=== PATIENT | female | born 1930 | race Caucasian/White ===

== ENCOUNTER 2016-07-20 15:21 | Emergency (ER) | payer OTHER ==
--- NOTE | 2016-07-20 16:34 | EKG Report ---
Test Performed on : 07/20/2016 3:48:31 PM Test Reason : WEAKNESS Blood Pressure : / mmHG Vent. Rate : 081 BPM Atrial Rate : 057 BPM P-R Int : 000 ms QRS Dur : 074 ms QT Int : 380 ms P-R-T Axes : 000 071 013 degrees QTc Int : 441 ms Atrial fibrillation. Low voltage QRS Abnormal ECG No previous ECGs available Unconfirmed Result
--- NOTE | 2016-07-20 17:40 | PROVIDER DOCUMENTATION ---
HPI-General Adult - General Chief Complaint: Weakness Stated Complaint: WEAKNESS Time Seen by Provider: 07/20/16 16:47 Source: patient Allergies/Adverse Reactions: Patient Allergies Allergy/AdvReac Type Severity Reaction Status Date / Time codeine Allergy ITCHING Verified 04/04/13 12:44 Home Medications: Home Medication List Medication Instructions Recorded Confirmed Last Taken Type Propranolol [Inderal] 20 mg PO BID 04/04/13 12/11/14 07/20/16 07:00 History Apixaban [Eliquis] 2.5 mg PO BID 12/04/14 12/11/14 07/20/16 07:00 History Biotin 2,500 mcg PO DAILY 12/04/14 12/11/14 07/20/16 07:00 History Multivit-Minerals/Folic/Ginkgo 1 each PO DAILY 12/04/14 12/04/14 07/20/16 07:00 History [One Daily For Women 50+ Adv Tb] [place]-3S/Dha/Epa/Fish Oil/D3 [Fish 1 each PO DAILY 12/04/14 12/04/14 07/20/16 07 :00 History Wvl-Letzl-7-Vit D Softgel] Docusate Sodium [Colace] 100 mg PO BID #0 capsule 12/14/14 07/20/16 07:00 Rx Multivit,Fe,Ca,FA & Min [Thera M 1 each PO DAILY #0 tablet 12/14/14 07/20/16 07 :00 Rx Plus] Nitrofurantoin Monohyd/M-Cryst 100 mg PO BID #14 capsule 07/20/16 Unknown Rx [Macrobid 100 mg Capsule] - History of Present Illness -Gen Adult Nature of Presenting Problems: 86 y/o WF BIB daughter, c/o increased weakness over the past week. She has hx of AFib on Eliquis, and they called Dr. Tirado (business systems developer) who told them to come for evaluation. She denies chest pain, palpitations or sob. She reports a generalized fatigue. Saw PCP who d/c home for Dementia. Denies nausea , vomiting, diarrhea or dysuria. Location of Pain/Injury: reports: none Quality of Pain: reports: none Onset/Duration: reports: 1 week ago Timing: reports: constant Context/Activities at Onset: denies: light activity, moderate activity, vigorous activity, recent emotional stress, recent physical stress, recent trauma history, possible bad food, cold exposure, eating, out of country travel , rest, sleep Associated Symptoms: reports: loss of appetite, malaise, weakness. denies: anxiety, arm pain, back/neck pain, chest pain, constipation, cough, diaphoresis , diarrhea, dizziness, EENT symptoms, fatigue, fever/chills, genitourinary problems, headaches, heartburn, joint pain, muscle aches, sinus congestion/ drainage, nausea, rash, seizure, shortness of breath, sensory/motor loss, pain with inspiration, swelling/mass in abdomen, syncope, vomiting, trouble walking Similar Symptoms Previously?: Yes Recently seen or treated by another doctor?: Yes Review of Systems - Adult - REVIEW OF SYSTEMS - ADULT Constitutional: reports: see HPI, fatique. denies: chills, fever, weight loss Eyes: reports: no symptoms reported. denies: decreased vision, blurred vision, double vision, eye pain Ears, Nose, Mouth & Throat: reports: no symptoms reported. denies: ear pain, nose pain, throat pain Cardiovascular: reports: no symptoms reported. denies: chest pain, palpitations Respiratory: reports: no symptoms reported. denies: cough, shortness of breath , wheezing Gastrointestinal: reports: see HPI, nausea, poor appetite. denies: abdominal pain, diarrhea, vomiting Genitourinary: reports: no symptoms reported. denies: dysuria, discharge, frequency Musculoskeletal: reports: no symptoms reported Integumentary: reports: no symptoms reported. denies: rash Neurological: reports: no symptoms reported. denies: ataxia, dizziness/vertigo , headache/migraines Psychiatric: reports: no symptoms reported Endocrine: reports: no symptoms reported Hematologic/Lymphatic: reports: no symptoms reported Allergic/Immunologic: reports: no symptoms reported All Other Systems: Reviewed and Negative Past History - Adult - PAST MEDICAL HISTORY-ADULT Review of Records: reports: Old Records Reviewed, Nursing Assessment Review, Medications Reviewed, Social history reviewed & non-contributory. Major Childhood Illnesses: reports: denies history Cardiovascular: reports: A-Fib, HTN Respiratory: reports: denies history Gastrointestinal: reports: denies history Obstetrical/Gynecological: reports: uterine/ovarian cancer (breast) Genitourinary: reports: denies history Musculoskeletal: reports: denies history Neurological: reports: denies history Endocrine/Immune: reports: denies history Other Conditions: reports: denies history - FAMILY HISTORY Family History: reviewed, not pertinent - SOCIAL HISTORY Smoking: denies Substance Use: none/never Alcohol Use Frequency: never Physical Exam-General - PHYSICAL EXAM-ADULT Initial Vital Signs Reviewed: Yes - CONSTITUTIONAL General Appearance: appears well, alert, no apparent distress - EYES Eyes: PERRL/EOMI, pink conjunctivae - HEAD, EARS, NOSE, MOUTH & THROAT HENMT: normocephalic/atraumatic, moist mucous membranes, normal ENT inspection - NECK Neck: non-tender, full range of motion, supple, normal inspection - RESPIRATORY Respiratory: chest non-tender, lungs clear, normal breath sounds, no pleuratic chest pain, no respiratory distress, no accessory muscle use. negative: respiratory distress, decreased breath sounds, accessory muscle use, crackles, rales, rhonchi, wheezing - CARDIOVASCULAR Cardiovascular: normal peripheral pulses, regular rate, rhythm - GASTROINTESTINAL (ABDOMEN) Abdominal Exam: normal bowel sounds, non tender, soft, no organomegaly, no pulsatile mass. negative: abdominal bruit, abnormal bowel sounds, distended, guarding, rigid, rebound, tenderness - MUSCULOSKELETAL Extremity: normal range of motion, non-tender, normal gait, normal inspection Peripheral Pulses: radial (R): 2+, radial (L): 2+, dorsalis-pedis (R): 2+, dorsalis-pedis (L): 2+ - SKIN Integumentary: normal color, normal turgor, warm/dry - NEUROLOGIC Neurologic: grossly normal, no motor/sensory deficits - PSYCHIATRIC Psych/Mental Status: normal mood/affect, normal thought content, normal thought process, oriented x 3 Progress - PLAN OF CARE/RESULTS Progress/Plan/Lab Results: Vital Signs Temp Pulse Resp BP Pulse Ox 07/20/16 15:52 96.4 F L 76 18 141/70 98 codeine Allergy (Verified 04/04/13 12:44) ITCHING Propranolol [Inderal] 20 mg PO BID 04/04/13 Apixaban [Eliquis] 2.5 mg PO BID 12/04/14 Biotin 2,500 mcg PO DAILY 12/04/14 Multivit-Minerals/Folic/Ginkgo [One Daily For Women 50+ Adv Tb] 1 each PO DAILY 12/04/14 [place]-3S/Dha/Epa/Fish Oil/D3 [Fish Egf-Sincp-9-Vit D Softgel] 1 each PO DAILY Docusate Sodium [Colace] 100 mg PO BID #0 capsule 12/14/14 Multivit,Fe,Ca,FA & Min [Thera M Plus] 1 each PO DAILY #0 tablet 12/14/14 Laboratory 07/20/16 07/20/16 07/20/16 20:40 20:40 17:50 WBC RBC Hgb Hct MCV MCH MCHC RDW Std Deviation Plt Count MPV Immature Gran % (Auto) Neut % (Auto) Lymph % (Auto) [place] % (Auto) Eos % (Auto) Baso % (Auto) Immature Gran # (Auto) Neut # (Auto) Lymph # (Auto) [place] # (Auto) Eos # (Auto) Baso # (Auto) PT INR PTT (Actin FS) D-Dimer Sodium Potassium Chloride Carbon Dioxide Anion Gap BUN Creatinine Estimated GFR/1.73 m2 BUN/Creatinine Ratio Glucose Calculated Osmolality Calcium Magnesium Total Bilirubin AST ALT Alkaline Phosphatase Creatine Kinase 22 L Troponin T < 0.010 < 0.010 Gky-B-Oxwoonflckx Pept Total Protein Albumin Globulin Albumin/Globulin Ratio Urine Source Urine Color Urine Turbidity Urine pH Ur Specific [place] Urine Protein Ur Glucose (Stick) Ur Ketones (Stick) Urine Blood Urine Nitrite Urine Bilirubin Urobilinogen Dipstick Urine Leukocytes Urine WBC (Auto) Urine RBC (Auto) U Epithel Cells (Auto) Urine Bacteria (Auto) 07/20/16 07/20/16 07/20/16 17:50 17:50 17:50 WBC RBC Hgb Hct MCV MCH MCHC RDW Std Deviation Plt Count MPV Immature Gran % (Auto) Neut % (Auto) Lymph % (Auto) [place] % (Auto) Eos % (Auto) Baso % (Auto) Immature Gran # (Auto) Neut # (Auto) Lymph # (Auto) [place] # (Auto) Eos # (Auto) Baso # (Auto) PT 10.8 INR 1.02 PTT (Actin FS) 25.6 D-Dimer 0.12 Sodium Potassium Chloride Carbon Dioxide Anion Gap BUN Creatinine Estimated GFR/1.73 m2 BUN/Creatinine Ratio Glucose Calculated Osmolality Calcium Magnesium Total Bilirubin AST ALT Alkaline Phosphatase Creatine Kinase Troponin T Juj-O-Bxqlanbrcjg Pept 1210 H Total Protein Albumin Globulin Albumin/Globulin Ratio Urine Source Urine Color Urine Turbidity Urine pH Ur Specific [place] Urine Protein Ur Glucose (Stick) Ur Ketones (Stick) Urine Blood Urine Nitrite Urine Bilirubin Urobilinogen Dipstick Urine Leukocytes Urine WBC (Auto) Urine RBC (Auto) U Epithel Cells (Auto) Urine Bacteria (Auto) 07/20/16 07/20/16 07/20/16 17:50 17:50 17:17 WBC 8.34 RBC 5.41 H Hgb 15.3 Hct 46.5 MCV 86.0 MCH 28.3 MCHC 32.9 L RDW Std Deviation 13.2 Plt Count 234 MPV 10.1 Immature Gran % (Auto) 0.0 Neut % (Auto) 57.5 Lymph % (Auto) 29.0 [place] % (Auto) 9.1 Eos % (Auto) 4.0 Baso % (Auto) 0.4 Immature Gran # (Auto) 0.00 Neut # (Auto) 4.80 Lymph # (Auto) 2.42 [place] # (Auto) 0.76 H Eos # (Auto) 0.33 Baso # (Auto) 0.03 PT INR PTT (Actin FS) D-Dimer Sodium 142 Potassium 3.6 Chloride 99 Carbon Dioxide 28 Anion Gap 15 BUN 18 Creatinine 1.1 H Estimated GFR/1.73 m2 47 BUN/Creatinine Ratio 16 Glucose 118 H Calculated Osmolality 286 Calcium 9.4 Magnesium 1.6 Total Bilirubin 0.46 AST 17 ALT 13 Alkaline Phosphatase 81 Creatine Kinase 23 L Troponin T [id number]-Wpsqmrbnlkb Pept Total Protein 6.6 Albumin 3.4 L Globulin 3.2 Albumin/Globulin Ratio 1.1 Urine Source CLEAN CATCH Urine Color YELLOW Urine Turbidity CLEAR Urine pH 6.5 Ur Specific [place] 1.022 Urine Protein TRACE A Ur Glucose (Stick) NEGATIVE Ur Ketones (Stick) NEGATIVE Urine Blood NEGATIVE Urine Nitrite NEGATIVE Urine Bilirubin NEGATIVE Urobilinogen Dipstick 2 A Urine Leukocytes TRACE A Urine WBC (Auto) <10 Urine RBC (Auto) <10 U Epithel Cells (Auto) <10 Urine Bacteria (Auto) NEGATIVE Orders Category Date Time Status Cardiac Monitoring DIRECTED Care 07/20/16 17:24 Active CHEST-2 VIEWS [RAD] Stat Exams 07/20/16 17:24 Taken HEAD W/O CONTRAST [CT] Stat Exams 07/20/16 17:24 Draft CBC WITH ELECTRONIC DIFF [HEME] Stat Lab 07/20/16 17:50 Completed CK PROFILE [SP CHEM] Stat Lab 07/20/16 17:50 Completed CK PROFILE [SP CHEM] Stat Lab 07/20/16 20:40 Completed COMPREHENSIVE METABOLIC PANEL [CHEM] Stat Lab 07/20/16 17:50 Completed D-DIMER [CHEM] Stat Lab 07/20/16 17:50 Completed MAGNESIUM [CHEM] Stat Lab 07/20/16 17:50 Completed PRO B-NATRIURETIC PEPTIDE Stat Lab 07/20/16 17:50 Completed PROTIME WITH INR [COAG] Stat Lab 07/20/16 17:50 Completed PTT [COAG] Stat Lab 07/20/16 17:50 Completed TROPONIN T Stat Lab 07/20/16 17:50 Completed TROPONIN T Stat Lab 07/20/16 20:40 Completed UA Reflex [URINALYSIS W/POSS RFLX CULT] [URINALYSIS] Lab 07/20/16 17:17 Completed Stat URINE CULTURE [RM] Routine Lab 07/20/16 19:13 Received CefTRIAXONE 1 GM/NS [Rocephin 1 gm/Ns] 50 ml Med 07/20/16 19:08 Discontinued IV NOW CefTRIAXONE [Rocephin] Med 07/20/16 20:21 Discontinued 1 gm IM NOW ONE Lidocaine 1% Pf [Xylocaine-Mpf 1%] Med 07/20/16 20:21 Discontinued 5 ml INJ NOW ONE EKG [EKG] Stat Ther 07/20/16 15:44 Draft EKG [EKG] Stat Ther 07/20/16 17:24 Ordered EKG [EKG] Stat Ther 07/20/16 18:56 Ordered - CT/MRI 1 CT Study: Head Impression: Normal (NAD per radiology) Departure - Departure Time of Disposition Order: 21:07 DIAGNOSIS: Acute UTI Disposition: HOME 01 Certified Medical Emergency: Emergent Condition: Stable Additional Instructions: Follow up with Dr. Martin tomorrow ED Follow Up Instructions: You have been treated by a care provider in the Emergency Department. These instructions are being provided to you so you can have an understanding of how to care for yourself upon discharge. Upon discharge from the Emergency Department, you are responsible for making arrangements for follow-up care by a physician of your choice. Take all prescribed medications as directed. Return to the Emergency Department immediately for any new or worsening symptoms. You may call the Physician Referral phone number at [phone] to obtain a list of Physicians who are taking new patients. Prescriptions: Nitrofurantoin Monohyd/M-Cryst [Macrobid 100 mg Capsule] 100 mg PO BID #14 capsule Attestation - Physician/ KAPIL Attestation Patient care was provided by Advanced Practice Provider:: Yes Advanced Practice Provider:: Janis Roblero Advanced Practice Provider documentation review:: The Mid-level provider documentation, treatment plan and medical decision making was reviewed by the physician who agrees with all treatment and medical decision making by the MLP.
[2016-07-20 18:10] LABS: MANUAL DIFF NEEDED? NO
[2016-07-20 18:19] LABS: BASO% 0.4 % (0.0-0.8); EOS# 0.33 X1000 (0.0-0.7); HEMATOCRIT 46.5 % (37.0-47.0); HEMOGLOBIN 15.3 g/dL (12.0-16.0); LYMPH# 2.42 X1000 (1.2-3.4); MCH 28.3 PG (27-31); MCHC 32.9 g/dL (33-37); MONO# 0.76 X1000 (0.11-0.59); MONO% 9.1 % (1.7-9.3); MPV 10.1 FL (7.4-10.4); NEUT% 57.5 % (42.2-75.2); PLT 234 X1000 (130-400); RBC 5.41 XMIL (4.2-5.4)
[2016-07-20 18:27] LABS: INR 1.02; PROTIME 10.8 Seconds (9.2-11.7); PTT 25.6 Seconds (22.0-36.0)
[2016-07-20 18:33] LABS: ALBUMIN 3.4 g/dL (3.5-5.0); CALCIUM 9.4 mg/dL (8.8-10.2); MAGNESIUM 1.6 mg/dL (1.5-2.7); POTASSIUM 3.6 mmol/L (3.5-5.1); TOTAL BILIRUBIN 0.46 mg/dL (0.20-1.00); TOTAL PROTEIN 6.6 g/dL (6.3-8.3)
[2016-07-20 19:04] LABS: URINE MICRO REVIEW NEEDED? NO; URINE SOURCE CLEAN CATCH
[2016-07-20 19:07] LABS: BILIRUBIN URINE NEGATIVE (NEGATIVE); BLOOD URINE NEGATIVE (NEGATIVE); COLOR YELLOW; GLUCOSE URINE NEGATIVE (NEGATIVE); LEUKOCYTES URINE TRACE (NEGATIVE); NITRITE URINE NEGATIVE (NEGATIVE); PH URINE 6.5; PROTEIN URINE TRACE mg/dL (NEGATIVE); SP GRAVITY URINE 1.022; TURBIDITY URINE CLEAR (CLEAR); UR EPITHELIAL CELLS <10 /HPF (<10); URINE BACTERIA NEGATIVE /HPF; URINE CULTURE NEEDED? YES; URINE RBC <10 /HPF (<10); URINE WBC <10 /HPF (<10); UROBILINOGEN URINE 2 mg/dL (NORMAL)
[2016-07-20] MEDS ORDERED: ROCEPHIN 1 GM/NS 50 ML IV ONE (19:08)
--- NOTE | 2016-07-20 19:19 | Diag Imaging Result Document ---
PROCEDURE NAME: HEAD W/O CONTRAST - 07/20/2016 STUDY: CT brain without. COMPARISON: Compared to 06/18/2016. No parenchymal hemoglobin. No epidural or subdural hematoma. No subarachnoid hemorrhage. There is atrophy with chronic microvascular ischemic changes. The appearance of the basal ganglia is similar to the prior study. No sinus opacification. No air fluid levels. IMPRESSION: 1. No hemorrhage. 2. Atrophy with chronic microvascular ischemic changes. A preliminary report was given at 6:47 p.m.
[2016-07-20] MEDS ORDERED: ROCEPHIN IM ONE (20:21)
[2016-07-20] MEDS ORDERED: XYLOCAINE-MPF 1% INJ ONE (20:21)
--- NOTE | 2016-07-20 20:29 | ED EKG INTERP ---
EKG Interpretation - EKG Time of EKG reading by physician:: 20:17 EKG Read and Signed by:: Kiran Garnado Jr EKG Interpretation (*Must complete 3 of following elements*): Abnormal (Low voltage QRS; Lateral infarct, age undetermined; ST & T wave abnormality, consider inferior ischemia) Rate: 82 Rhythm: Atrial fibrillation Attestation - Scribe Verification/Attestation Scribe:: Donnell Ann Acting as Scribe for:: Kiran Granado Jr Scribe documention review:: This chart was documented by a scribe and accurately reflects the service the provider performed and the decisions made by the provider.
[2016-07-20 21:35] VITALS: BP 172/98
--- NOTE | 2016-07-21 05:42 | EKG Report ---
Test Performed on : 07/20/2016 8:17:16 PM Test Reason : cp Blood Pressure : / mmHG Vent. Rate : 082 BPM Atrial Rate : 250 BPM P-R Int : 000 ms QRS Dur : 072 ms QT Int : 370 ms P-R-T Axes : 000 128 191 degrees QTc Int : 432 ms Atrial fibrillation. Low voltage QRS Lateral infarct , age undetermined ST & T wave abnormality, consider inferior ischemia Abnormal ECG When compared with ECG of 20-JUL-2016 15:48, (Unconfirmed) QRS axis shifted right T wave inversion now evident in Lateral leads Unconfirmed Result
--- NOTE | 2016-07-21 07:46 | Diag Imaging Result Document ---
PROCEDURE NAME: CHEST-2 VIEWS - 07/20/2016 FRONTAL AND LATERAL CHEST, TWO VIEWS: COMPARISON: 12/04/2014. FINDINGS: The lungs are well expanded. The heart is not enlarged. The vessels are small. No pleural effusions. No consolidation. No free air beneath the diaphragm. There is mild scoliosis and there has been prior surgery to the lower cervical spine. Cement is present within a vertebra on the edge of the film. IMPRESSION: No acute abnormality.
== END 2016-07-20 21:35 | disposition home or self-care (01) ==
LOC: ED 15:21
DX: N39.0 Urinary tract infection, site not specified (principal); R94.31 Abnormal electrocardiogram [ECG] [EKG]; R94.09 Abnormal results of other function studies of central nervous system; R53.1 Weakness; R53.83 Other fatigue; R53.81 Other malaise; R11.0 Nausea; I48.91 Unspecified atrial fibrillation; Z79.899 Other long term (current) drug therapy; I10 Essential (primary) hypertension; Z79.01 Long term (current) use of anticoagulants
CPT/HCPCS: 70450; 71020; 80053; 81001; 82550; 83735; 83880; 84484; 85025; 85379; 85610; 85730; 87088; 93005; J0696